=== PATIENT | female | born 1965 | race Hispanic/Latino ===

== ENCOUNTER 2016-11-18 10:37 | Outpatient (CLI) | payer BC ==
--- NOTE | 2016-11-18 11:46 | XRay Report ---
Bilateral knees, 4 views of each: Standing imaging of both knees demonstrate surgical findings consistent with cruciate ligament repair on the right stabilized superiorly with 2 screws and inferiorly with a staple. Periarticular spurs are identified involving both medial and lateral compartments. The joint spaces are preserved and there is good alignment. Articular spurs are also noted at the superior patellofemoral junction. There are numerous dystrophic appearing calcifications noted posteriorly with one calcification projecting anterior to the tibial eminence consistent with the joint space. The location of some of the posterior calcifications relative to the joint space is indeterminate. No swelling and no effusion. Standing views of the left knee demonstrate periarticular spurring involving both lateral and medial compartments. There is good alignment and the joint spaces are preserved as are the articular surfaces. Superior articular spurring is identified at the patellofemoral junction. There may be narrowing of the lateral retropatellar space. Dystrophic calcifications are noted lateral to the lateral compartment as well as a linear grouping just lateral to the distal femur. There is also a small grouping of calcifications in the anterior knee just above the tibia also consistent with the joint space location. No swelling and no effusion. Impressions: 1. Bilateral anterior loose bodies cannot be excluded from joint spaces. 2. Bilateral periarticular spurring with good preservation of the joint spaces and alignment. 3. Operative right knee changes.
== END 2016-11-18 10:38 | disposition home or self-care (01) ==
LOC: SPVIMAG 10:37
PROVIDERS: ATTEND Orthopaedic Surgery
DX: M25.861 Other specified joint disorders, right knee (principal); M25.862 Other specified joint disorders, left knee; Z98.890 Other specified postprocedural states